=== PATIENT | female | born 1960 | race Caucasian/White ===

== ENCOUNTER 2016-10-13 13:52 | Inpatient (IN) | payer OTHER, MEDICARE ==
[~2016-10-13] VITALS: Ht 157.5 cm; Wt 115.1 kg
[2016-10-17] MEDS ORDERED: CHLO25TA2 PO (12:34)
[2016-10-17] MEDS ORDERED: METO50TA11 PO (12:34)
[2016-10-17] MEDS ORDERED: FOLI5CAP PO (12:34)
[2016-10-17] MEDS ORDERED: ZOLP5TAB3 PO (12:34)
[2016-10-17] MEDS ORDERED: AMLO10TA2 PO (12:34)
[2016-10-17] MEDS ORDERED: HYDR-3580 PO (12:34)
[2016-10-17] MEDS ORDERED: ADVA250A INH (12:34)
[2016-10-17] MEDS ORDERED: METH2.5T PO (12:34)
[2016-10-17] MEDS ORDERED: METF500T PO (12:34)
[2016-10-17] MEDS ORDERED: LOSA100T PO (12:34)
[2016-10-17] MEDS ORDERED: ENBR25IN2 SQ (12:52)
[2016-10-17] MEDS ORDERED: ERGO1CAP10 PO (12:54)
[2016-10-18] VITALS (7 sets, daily range): BP systolic 130–149; BP diastolic 61–89; PULSE 81–93; RESP 16–21; TEMP 96–97.8; O2SAT 96–98
[2016-10-18] MEDS ORDERED: METOPROLOL TARTRATE 25 MG TAB PO PRN (05:45)
[2016-10-18] MEDS ORDERED: ACETAMINOPHEN 1000 MG/100 ML VIAL IV SCH (05:45)
[2016-10-18] MEDS ORDERED: ONDANSETRON HCL 4 MG/2 ML VIAL IV PUSH SCH (05:45)
[2016-10-18] MEDS ORDERED: INSULIN HUMAN REGULAR 1,000 UNITS/10 ML VIAL SQ PRN (05:45)
[2016-10-18] MEDS ORDERED: metroNIDAZOLE 500 MG INJ 100 ML IV SCH (05:45)
[2016-10-18] MEDS ORDERED: SCOPOLAMINE 1.5 MG PATCH T-DERMAL SCH (05:45)
[2016-10-18] MEDS ORDERED: APREPITANT 40 MG CAP ONE (06:29)
[2016-10-18] MEDS ORDERED: APREPITANT 40 MG CAP PO SCH (06:30)
[2016-10-18] MEDS ORDERED: METH5INJ SQ (06:50)
[2016-10-18] MEDS ORDERED: ceFAZolin 2 GM PREMIX 50 ML IV SCH (07:00)
[2016-10-18] MEDS ORDERED: LACTATED RINGER'S 1000 ML IV SCH (08:00)
[2016-10-18] MEDS ORDERED: SODIUM CHLORID 0.9% 500 ML IV SCH (08:00)
[2016-10-18] MEDS ORDERED: BUPIVACAINE/EPINEPHRINE 0.25% PF 30 ML VIAL ONE (08:08)
[2016-10-18] MEDS ORDERED: FAMOTIDINE 20 MG/2 ML VIAL ONE (08:27)
[2016-10-18] MEDS ORDERED: METHYLENE BLUE 10 MG/ML VIAL NG ONE (09:15)
[2016-10-18] MEDS ORDERED: SUGAMMADEX SODIUM 200 MG/2 ML VIAL IV PUSH ONE ×2 (09:39)
[2016-10-18] MEDS: 1/2 NS + KCL 20 MEQ INJ 1,000 ML IV SCH ×4 (10:03→20:51)
[2016-10-18] MEDS ORDERED: ACETAMINOPHEN 325MG/HYDROcodone 7.5MG/15ML UDC PO PRN ×2 (10:15)
[2016-10-18] MEDS ORDERED: diphenhydrAMINE HCL ELIXIR 12.5 MG/5 ML CUP PO PRN (10:15)
[2016-10-18] MEDS ORDERED: ONDANSETRON HCL 4 MG/2 ML VIAL IV PRN ×2 (10:15)
[2016-10-18] MEDS ORDERED: MORPHINE SULFATE 30 MG/30 ML PCA IV SCH (10:15)
[2016-10-18] MEDS ORDERED: diphenhydrAMINE HCL 50 MG/ML VIAL IV PRN (10:15)
[2016-10-18] MEDS ORDERED: NALOXONE HCL 0.4 MG/ML AMP IV PRN (10:15)
[2016-10-18] MEDS ORDERED: ENALAPRILAT 1.25 MG/ML VIAL IV PUSH PRN (10:15)
[2016-10-18] MEDS ORDERED: SODIUM CHLORIDE 0.9% FLUSH 5 ML FLUSH IVF PRN (10:15)
[2016-10-18] MEDS ORDERED: fentaNYL CITRATE 250 MCG/5 ML AMP ONE (10:24)
[2016-10-18] MEDS ORDERED: MIDAZOLAM HCL 2 MG/2 ML VIAL ONE (10:24)
[2016-10-18] MEDS ORDERED: *morphine SULFATE 8 MG/ML PERIprocedure ONLY ONE (10:25)
[2016-10-18] MEDS ORDERED: Post-op Orders (for Pharmacy) MISC XX ONE (10:30)
[2016-10-18] MEDS ORDERED: DO NOT ADM ANY ANTICOAGULANT DRUGS XX PRN (10:30)
[2016-10-18] MEDS ORDERED: *ONDANSETRON 4 MG VIAL PERIprocedural Use ONLY ONE (10:39)
[2016-10-18] MEDS: METOCLOPRAMIDE HCL 10 MG/2 ML VIAL IVS SCH ×3 (10:51→23:18)
[2016-10-18] MEDS ORDERED: ACETAMINOPHEN 1000 MG/100 ML VIAL IV PRN (11:00)
[2016-10-18] MEDS ORDERED: PROPOFOL 200 MG/20 ML AMP IV ONE (12:00)
[2016-10-18] MEDS ORDERED: PHENYLEPH/NS 1000 MCG/10 ML SYR IV ONE (12:00)
[2016-10-18] MEDS ORDERED: ePHEDrine/NS 25 MG/5 ML SYR IV ONE (12:00)
[2016-10-18] MEDS ORDERED: LACTATED RINGER'S 1000 ML INJ 1,000 ML IV ONE (12:00)
[2016-10-18] MEDS: PCA - TOTAL MG MORPHINE DELIVERED PER SHIFT SCH ×2 (14:00→20:50)
[2016-10-18] MEDS: RESP: ALBUTEROL 2.5 MG/3 ML NEB (SCH) INH ×2 (15:20→19:56)
[2016-10-18] MEDS: metroNIDAZOLE 500 MG INJ 100 ML IV SCH ×2 (15:33→23:19)
[2016-10-18] MEDS: ENOXAPARIN SODIUM 40 MG/0.4 ML SYRINGE SQ SCH (15:33)
[2016-10-18] MEDS: SODIUM CHLORIDE 0.9% FLUSH 5 ML FLUSH IVF SCH (20:50)
[2016-10-19] VITALS (10 sets, daily range): BP systolic 142–170; BP diastolic 63–72; PULSE 85–94; RESP 16–20; TEMP 96.6–98.5; O2SAT 93–98
[2016-10-19] MEDS: RESP: ALBUTEROL 2.5 MG/3 ML NEB (SCH) INH ×6 (01:35→19:28)
[2016-10-19] MEDS: METOCLOPRAMIDE HCL 10 MG/2 ML VIAL IVS SCH (04:36)
[2016-10-19] MEDS: metroNIDAZOLE 500 MG INJ 100 ML IV SCH (04:36)
[2016-10-19] MEDS: PCA - TOTAL MG MORPHINE DELIVERED PER SHIFT SCH ×3 (04:40→20:19)
[2016-10-19 05:03] LABS: AUTOMATED NEUTROPHIL # 10.3 TH/MM3 (1.8-7.7); BASOPHIL # 0.1 TH/MM3 (0-0.2); BASOPHIL % 0.6 % (0.0-2.0); EOSINOPHIL % 0.1 % (0.0-4.0); HEMATOCRIT 35.4 % (35.0-46.0); HEMO FLAGS DIFF FINAL; LYMPH % 9.9 % (9.0-44.0); LYMPHOCYTE # 1.2 TH/MM3 (1.0-4.8); MEAN CELL VOLUME 92.9 FL (80.0-100.0); MEAN CORPUSCULAR HEMOGLOBIN 32.1 PG (27.0-34.0); MEAN CORPUSCULAR HGB CONC 34.5 % (32.0-36.0); MONO % 7.8 % (0.0-8.0); NEUT % 81.6 % (16.0-70.0); PLATELET COUNT 275 TH/MM3 (150-450); RED BLOOD COUNT 3.81 MIL/MM3 (4.00-5.30); RED CELL DISTRIBUTION WIDTH 14.5 % (11.6-17.2); WHITE BLOOD COUNT 12.6 TH/MM3 (4.0-11.0)
[2016-10-19 05:14] LABS: BICARBONATE 28.1 MEQ/L (21.0-32.0); MAGNESIUM 1.7 MG/DL (1.5-2.5)
[2016-10-19 05:20] LABS: POTASSIUM 2.9 MEQ/L (3.5-5.1)
[2016-10-19] MEDS: 1/2 NS + KCL 20 MEQ INJ 1,000 ML IV SCH ×5 (06:24→18:12)
[2016-10-19] MEDS: SUCRALFATE 1 GM/10 ML CUP PO SCH ×4 (06:24→22:41)
[2016-10-19] MEDS: POTASSIUM CHLOR 20 MEQ PREMIX 100 ML IV SCH ×4 (06:24→23:46)
[2016-10-19] MEDS: PANTOPRAZOLE SOD 40 MG DELAYED RELEASE TAB PO SCH (08:46)
[2016-10-19] MEDS: SODIUM CHLORIDE 0.9% FLUSH 5 ML FLUSH IVF SCH ×2 (08:49→20:13)
[2016-10-19] MEDS: PANTOPRAZOLE SODIUM 40 MG VIAL IVP SCH (08:50)
[2016-10-19] MEDS ORDERED: METOCLOPRAMIDE HCL 10 MG/2 ML VIAL IVS PRN (10:15)
[2016-10-19] MEDS: METOPROLOL SUCCINATE 50 MG EXTENDED RELEASE TAB PO SCH (11:25)
[2016-10-19] MEDS: LOSARTAN 50 MG TAB PO SCH (11:25)
[2016-10-19] MEDS: ENOXAPARIN SODIUM 40 MG/0.4 ML SYRINGE SQ SCH (15:41)
--- NOTE | 2016-10-19 17:52 | HHI.PR ---
Subjective Subjective Notes no cp no sob no N/V Objective Vitals/I&O Vital Signs Date Time Temp Pulse Resp B/P Pulse Ox O2 Delivery O2 Flow Rate FiO2 10/19/16 16:00 98.3 92 16 162/72 94 10/19/16 07:30 21 10/19/16 01:38 Nasal Cannula 10/18/16 19:56 3.00 Labs Laboratory Tests Test 10/19/16 10/19/16 04:00 16:39 White Blood Count 12.6 Red Blood Count 3.81 Hemoglobin 12.2 Hematocrit 35.4 Mean Corpuscular Volume 92.9 Mean Corpuscular Hemoglobin 32.1 Mean Corpuscular Hemoglobin 34.5 Concent Red Cell Distribution Width 14.5 Platelet Count 275 Mean Platelet Volume 9.8 Neutrophils (%) (Auto) 81.6 Lymphocytes (%) (Auto) 9.9 Monocytes (%) (Auto) 7.8 Eosinophils (%) (Auto) 0.1 Basophils (%) (Auto) 0.6 Neutrophils # (Auto) 10.3 Lymphocytes # (Auto) 1.2 Monocytes # (Auto) 1.0 Eosinophils # (Auto) 0.0 Basophils # (Auto) 0.1 CBC Comment DIFF FINAL Differential Comment Sodium Level 138 Potassium Level 2.9 3.0 Chloride Level 100 Carbon Dioxide Level 28.1 Anion Gap 10 Blood Urea Nitrogen 7 Creatinine 0.63 Estimat Glomerular Filtration 97 Rate Random Glucose 132 Calcium Level 8.4 Magnesium Level 1.7 Abdomen: Post-op tenderness Extremities: Perfused Wound Wound : Wound Location: Abdomen Appearance: Clean & Dry A/P Assessment and Plan s/p lap sleeve POD # 1 doing well replace k follow protocol Jessee Estevez MD Oct 19, 2016 17:52
[2016-10-20] VITALS: BP 145/64; PULSE 94; RESP 17; TEMP 99.5; O2SAT 96
[2016-10-20] MEDS: RESP: ALBUTEROL 2.5 MG/3 ML NEB (SCH) INH ×3 (00:01→09:04)
[2016-10-20] MEDS: PCA - TOTAL MG MORPHINE DELIVERED PER SHIFT SCH (04:53)
[2016-10-20] MEDS: SUCRALFATE 1 GM/10 ML CUP PO SCH ×3 (04:53→17:38)
[2016-10-20] MEDS: 1/2 NS + KCL 20 MEQ INJ 1,000 ML IV SCH ×4 (04:54→17:38)
[2016-10-20 04:55] VITALS: RESP 18
[2016-10-20 05:05] LABS: MAGNESIUM 1.9 MG/DL (1.5-2.5); POTASSIUM 3.2 MEQ/L (3.5-5.1)
[2016-10-20 08:00] VITALS: BP 166/71; PULSE 79; RESP 16; TEMP 99; O2SAT 95
[2016-10-20] MEDS: LOSARTAN 50 MG TAB PO SCH (08:48)
[2016-10-20] MEDS: METOPROLOL SUCCINATE 50 MG EXTENDED RELEASE TAB PO SCH (08:48)
[2016-10-20] MEDS: PANTOPRAZOLE SOD 40 MG DELAYED RELEASE TAB PO SCH (08:48)
[2016-10-20] MEDS: SODIUM CHLORIDE 0.9% FLUSH 5 ML FLUSH IVF SCH (08:50)
[2016-10-20] MEDS: PANTOPRAZOLE SODIUM 40 MG VIAL IVP SCH (08:50)
[2016-10-20 09:08] VITALS: O2SAT 96
[2016-10-20 12:00] VITALS: BP 141/65; PULSE 86; RESP 26; TEMP 98.2; O2SAT 95
[2016-10-20] MEDS: POTASSIUM CHLOR 20 MEQ PREMIX 100 ML IV SCH ×2 (12:11→13:43)
[2016-10-20] MEDS: ENOXAPARIN SODIUM 40 MG/0.4 ML SYRINGE SQ SCH (14:50)
[2016-10-20 16:00] VITALS: BP 113/64; PULSE 85; RESP 20; TEMP 98.5; O2SAT 96
--- NOTE | 2016-10-22 21:14 | MP ---
cc: ASHER ESTEVEZ DATE OF SURGERY: 10/18/2016 PREOPERATIVE DIAGNOSIS: Morbid obesity with a BMI of 46 complicated by type 2 diabetes, essential hypertension. POSTOPERATIVE DIAGNOSIS: Morbid obesity with a BMI of 46 complicated by type 2 diabetes, essential hypertension. OPERATION: Laparoscopic vertical sleeve gastrectomy over a 36-[place] ViSiGi bougie. SURGEON: Asher Estevez MD. ANESTHESIA: General endotracheal anesthesia. ESTIMATED BLOOD LOSS: Scant. FINDINGS: Fatty liver. SPECIMENS: None. COMPLICATIONS: None. DESCRIPTION OF THE PROCEDURE IN DETAIL: The patient was brought to the operating room and placed on the operating table in supine position, bilateral sequential inflation device placed on lower extremities. General anesthesia was instituted. Antibiotics was initiated. The abdomen was prepped and draped sterilely. A point 15 cm distal to the xiphoid in the midline was anesthetized with 0.25% Marcaine with epinephrine. A skin incision was made, 5-mm OptiView port placed under direct vision and pneumoperitoneum created. Under direct vision, three 5-mm left upper quadrant, a 15-mm right upper quadrant, 5-mm right upper quadrant ports placed. Prior to placement of all ports the skin and peritoneum were anesthetized with 0.25% Marcaine with epinephrine. The patient was placed in reverse Trendelenburg position left side up, the Marsha-Flex retractor was placed. The left lobe of the liver was retracted. The vasculature along the greater curvature of the stomach was using harmonic scalpel starting a distance 5-cm proximal to the pylorus and carried towards the angle of His. The angle of His was taken down bluntly. Posterior ligamentous attachments were sharply . A 36-[place] ViSiGi bougie was placed at the start of the case, was placed on suction. Division of the stomach started 5 cm proximal to the pylorus and carried towards the angle of His to completely excise approximately 80% of the stomach. This was performed using an [place] Flex stapler at the pylorus. The first firing was with a black load, followed by a green load and four gold loads. All staple loads were reinforced with SeamGuard. A distance of 2 cm was left from the angle incisura and the staple line and a distance of 1 cm left from the GE junction and the staple line. The pylorus was then occluded, methylene blue tinged saline was instilled. There was no evidence of extravasation. The gastrocolic ligament was then sutured to the posterior leaflet of the SeamGuard using a 2-0 Vicryl suture in a running manner. Bleeding points were controlled with Evicel. The excised stomach was removed from the peritoneal cavity through the 15-mm port site in an Endopouch. The fascia at the 15-mm port site was approximated with 0 Vicryl suture. The CO2 was then released, all ports were removed, all skin incisions closed with 4-0 Monocryl. The abdominal wall was cleaned. A sterile dressing was placed. The patient was awakened and taken to the recovery room. MD BOBBY Hall/LAURA /8:42 AM /9:09 PM
== END 2016-10-20 19:05 | disposition home or self-care (01) | DRG 621 ==
LOC: HSDI 10-18 05:09 → N07B 10-18 12:13
PROVIDERS: ADMIT Surgery; ATTEND Surgery
PROC: 0DB64Z3 Excision of Stomach, Percutaneous Endoscopic Approach, Vertical (ICD-10-PCS; principal; 2016-10-18 08:34)
DX: E66.01 Morbid (severe) obesity due to excess calories (principal); I10 Essential (primary) hypertension; Z68.42 Body mass index [BMI] 45.0-49.9, adult; E11.9 Type 2 diabetes mellitus without complications
CPT/HCPCS: 80048; 83735; 84132; 85025; 94150; 94640; 94664; J0131; J0690; J1650; J2250; J2270; J2370; J2405; J2765; J3010; J3480; J7120; J7613; J8501